=== PATIENT | female | born 1980 | race American Indian/Alaskan Native ===

== ENCOUNTER 2018-10-11 08:45 | Emergency (ER) | payer BC ==
[2018-10-11 09:08] VITALS: BP 145/89
[2018-10-11] MEDS ORDERED: TORADOL IM ONE (11:14)
--- NOTE | 2018-10-11 12:11 | XRay Report ---
LEFT KNEE, 3 views: History: Left knee swollen and painful to touch. The bony architecture is intact without evidence of fracture or dislocation. Moderate joint effusion is suspected on the lateral image. IMPRESSION: Joint effusion. No osseous abnormality is appreciated. If internal derangement is suspected, MRI could be obtained.
--- NOTE | 2018-10-11 12:25 | Emergency Department Report ---
ED General Adult HPI - General Chief complaint: Dental/Oral Stated complaint: TOOTHACHE/L KNEE PAIN Time Seen by Provider: 10/11/18 11:03 Source: patient Mode of arrival: Ambulatory Limitations: No Limitations - History of Present Illness Initial comments: 38-year-old [place] female comes in with 2 complaints. First complaint is toothache that she's had for 3 or 4 days on the left side of her lower jaw. Patient also comes in for left knee pain and swelling for 4 days. She denies any trauma to her knee no recent falls. Patient reports that she has been taking Tylenol with no resolve pain. Patient denies any past medical history reports a tubal ligation. She has no known drug allergies takes no medications on a daily basis. Onset/Timin -: days(s) Location: mouth, lower extremity Radiation: non-radiation Severity scale (0 -10): 9 Quality: stabbing, aching Consistency: intermittent Improves with: none Worsens with: movement Associated Symptoms: denies other symptoms Treatments Prior to Arrival: none - Related Data Previous Rx's Medication Instructions Recorded Last Taken Type Clindamycin [Clindamycin CAP] 300 mg PO Q8H #30 cap 10/11/18 Unknown Rx Ibuprofen [Motrin 800 MG tab] 800 mg PO Q8HR PRN #30 tablet 10/11/18 Unknown Rx Allergies Allergy/AdvReac Type Severity Reaction Status Date / Time No Known Allergies Allergy Unverified 10/11/18 08:47 ED Review of Systems ROS: Stated complaint: TOOTHACHE/L KNEE PAIN Other details as noted in HPI Comment: All other systems reviewed and negative ED Past Medical Hx - Past Medical History Previous Medical History?: No - Surgical History Past Surgical History?: Yes Additional Surgical History: Tubal ligation - Social History Smoking Status: Never Smoker Substance Use Type: None - Medications Home Medications: Home Medications Medication Instructions Recorded Confirmed Last Taken Type Clindamycin [Clindamycin CAP] 300 mg PO Q8H #30 cap 10/11/18 Unknown Rx Ibuprofen [Motrin 800 MG tab] 800 mg PO Q8HR PRN #30 tablet 10/11/18 Unknown Rx ED Physical Exam - General Limitations: No Limitations General appearance: alert, in no apparent distress - Head Head exam: Present: atraumatic, normocephalic - Eye Eye exam: Present: normal appearance - Expanded ENT Exam Expanded Teeth exam: Present: dental caries, dental tenderness # (18) - Neck Neck exam: Present: normal inspection - Expanded Lower Extremity Exam Left Hip exam: Present: normal inspection, full ROM Upper Leg exam: Present: normal inspection, full ROM Knee exam: Present: tenderness, swelling, erythema Lower Leg exam: Present: normal inspection, full ROM. Absent: tenderness, swelling Foot/Toe exam: Present: normal inspection, full ROM. Absent: tenderness, swelling Neuro vascular tendon exam: Present: no vascular compromise ED Course Vital Signs 10/11/18 09:06 Temperature 98.4 F Pulse Rate 70 Respiratory 17 Rate Blood Pressure 145/89 O2 Sat by Pulse 100 Oximetry ED Medical Decision Making - Radiology Data Radiology results: report reviewed Patient: HOLLY LOPEZ MR#: [id number] : 1980 Acct:[id number] Age/Sex: 38 / F ADM Date: 10/11/18 Loc: ED Attending Dr: Ordering Physician: KIRA MONET Date of Service: 10/11/18 Procedure(s): XR knee 3V LT Accession Number(s): [id number] cc: KIRA MONET Fluoro Time In Minutes: LEFT KNEE, 3 views: History: Left knee swollen and painful to touch. The bony architecture is intact without evidence of fracture or dislocation. Moderate joint effusion is suspected on the lateral image. IMPRESSION: Joint effusion. No osseous abnormality is appreciated. If internal derangement is suspected, MRI could be obtained. Transcribed By: TTR Dictated By: MOHAN BRUCE JR, MD Electronically Authenticated By: MOHAN BRUCE JR, MD Signed Date/Time: 10/11/18 1205 DD/ 1204 TD/TT: 10/11/18 1205 - Medical Decision Making 38-year-old female comes in for 2 complaints toothache and left knee pain with no trauma. X-ray of knee shows a moderate knee effusion. Toothache shows a large cavity in tooth #18. Patient was given Toradol 30 mg IM. Discussed the patient I will place her antibiotics for her toothache since she does have some gingival enlargement. Patient does have a left knee moderate effusion will refer patient to Dr. Crenshaw or [facility] for evaluation. This information will be provider on patient's discharge summary. Critical care attestation.: If time is entered above; I have spent that time in minutes in the direct care of this critically ill patient, excluding procedure time. ED Disposition Clinical Impression: Dental abscess, Infected dental carries, Effusion of left knee joint Disposition: TO HOME OR SELFCARE Is pt being admited?: No Does the pt Need Aspirin: No Condition: Stable Instructions: Osteoarthritis (ED), Knee Effusion (ED), Dental Caries (ED), Dental Abscess (ED), Toothache (ED) Additional Instructions: Complete antibiotics as prescribed. Pain medication as needed. Follow-up with orthopedic provider I have listed several below for your convenience. Please follow-up with the dentist I have listed several below for your convenience. Prescriptions: Clindamycin [Clindamycin CAP] 300 mg PO Q8H #30 cap Ibuprofen [Motrin 800 MG tab] 800 mg PO Q8HR PRN #30 tablet PRN Reason: Pain , Severe (7-10) Referrals: VANGIE DEJESUS MD [Primary Care Provider] - 3-5 Days VELMA CRENSHAW MD [Staff Physician] - 3-5 Days OCTAVIO HEARD MD [Staff Physician] - 3-5 Days [facility] [Provider Group] - 3-5 Days [facility] [Outside] - 3-5 Days [facility] [Outside] - 3-5 Days [facility] [Outside] - 3-5 Days Forms: Work/School Release Form(ED)
== END 2018-10-11 12:49 | disposition home or self-care (01) ==
LOC: ED 08:45
DX: K04.7 Periapical abscess without sinus (principal); K02.9 Dental caries, unspecified; M25.462 Effusion, left knee; Z98.51 Tubal ligation status
CPT/HCPCS: 73562; 99283; J1885; 96372